=== PATIENT | male | born 1970 | race Caucasian/White ===

== ENCOUNTER 2019-10-12 02:11 | Emergency (ER) | payer MEDICAID ==
[~2019-10-12] VITALS: Ht 170.2 cm; Wt 80.0 kg
--- NOTE | 2019-10-12 02:22 | NUR ---
x ray at bedside
[2019-10-12] MEDS ORDERED: potassium Cl 20 mEq SR tablet PO ONE (02:55)
[2019-10-12] MEDS ORDERED: furosemide 40mg/4ml inj IV ONE (02:55)
[2019-10-12] MEDS ORDERED: lisinopril 10 MG tablet PO ONE (02:55)
[2019-10-12] MEDS ORDERED: carVEDilol 3.125mg tablet PO SCH (02:55)
[2019-10-12 03:41] VITALS: BP 136/85
== END 2019-10-12 03:30 | disposition home or self-care (01) ==
LOC: ER 02:12
DX: I42.7 Cardiomyopathy due to drug and external agent (principal); T43.625A Adverse effect of amphetamines, initial encounter; I50.9 Heart failure, unspecified; F15.90 Other stimulant use, unspecified, uncomplicated; J45.909 Unspecified asthma, uncomplicated; F17.200 Nicotine dependence, unspecified, uncomplicated; Z59.0 Homelessness; Y92.89 Other specified places as the place of occurrence of the external cause
CPT/HCPCS: 71045; 93005; 96374; 99284; J1940

== ENCOUNTER 2020-01-22 00:42 | Inpatient (IN) | payer MEDICAID ==
[~2020-01-22] VITALS: Ht 170.2 cm; Wt 90.9 kg
[2020-01-22 02:10] LABS: BASOPHILS % (AUTO) 0.2 % (0-1); EOSINOPHILS # (AUTO) 0.1 X10'3 (0-0.9); EOSINOPHILS % (AUTO) 0.5 % (0-6); HEMATOCRIT 40.8 % (42.0-52.0); HEMOGLOBIN 13.3 g/dl (14.0-17.9); LYMPHOCYTES # (AUTO) 1.1 X10'3 (1.1-4.8); LYMPHOCYTES % (AUTO) 4.4 % (21-51); MEAN CORPUSCULAR HGB CONC 32.5 g/dL (33.0-36.5); MEAN CORPUSCULAR VOLUME 89.4 FL (78-98); MEAN PLATELET VOLUME 10.1 FL (7.4-10.4); MONOCYTES # (AUTO) 1.2 X10'3 (0-0.9); MONOCYTES % (AUTO) 4.7 % (2-12); NEUTROPHILS # (AUTO) 22.8 X10'3 (1.8-7.7); NEUTROPHILS % (AUTO) 90.2 % (42-75); PLATELET COUNT 244 X10'3 (140-440); RED BLOOD COUNT 4.57 X10'6 (4.70-6.10); RED CELL DISTRIBUTION WIDTH 16.3 % (11.5-14.5)
[2020-01-22 02:16] LABS: WHITE BLOOD COUNT 25.3 X10'3 (4.5-11.0)
[2020-01-22 02:18] LABS: ALANINE AMINOTRANSFERASE 36 U/L (12-78); ALBUMIN 3.2 G/DL (3.4-5.0); ALBUMIN/GLOBULIN RATIO 0.8 (1.1-1.5); ALKALINE PHOSPHATASE 83 IU/L (46-116); ANION GAP 7 (8-16); ASPARTATE AMINO TRANSFERASE 24 U/L (10-37); BILIRUBIN,TOTAL 1.2 MG/DL (0.1-1.0); BLOOD UREA NITROGEN 18 MG/DL (7-18); BUN/CREATININE RATIO 14.6 (5.4-32.0); CALCIUM 8.5 MG/DL (8.5-10.1); CHLORIDE 104 MMOL/L (99-107); CREATININE 1.23 MG/DL (0.60-1.10); GLUCOSE 126 MG/DL (70-104); POTASSIUM 3.9 MMOL/L (3.5-5.1); SODIUM 140 MMOL/L (135-145); TOTAL CARBON DIOXIDE 28.7 MMOL/L (24-32); TOTAL PROTEIN 7.1 G/DL (6.4-8.2); eGFR 62 ML/MIN
[2020-01-22 02:28] LABS: TROPONIN I 0.07 NG/ML (0.0-0.05)
[2020-01-22 02:29] LABS: ETHANOL < 0.010 GM/DL (0.0-0.010)
[2020-01-22] MEDS ORDERED: CefTRIAXone 2gm/D5W 50ml 50 ML IV ONE (02:35)
--- NOTE | 2020-01-22 03:25 | NUR ---
PHARMACY DOESN'T HAVE MEDICATION [facility] READY.
--- NOTE | 2020-01-22 03:51 | NUR ---
DR RADFORD INFORMED OF HIS VISTAL SIGNS, HE IS ORDERING A CT
--- NOTE | 2020-01-22 03:57 | NUR ---
INFORMED REED FROM CT THAT JUAN PENDING
[2020-01-22] MEDS ORDERED: iohexol 350MG/ML 100ml bottle IV ONE (05:11)
--- NOTE | 2020-01-22 05:15 | NUR ---
PT VERY AGITATED. HE DIDN'T WANT TO GO TO CT. I VISITED WITH HIM ABOUT THE IMPORTANCE TO R/O A FEW THINGS AND HE SAID 'I HAVE NURSES WHERE I STAY AT' I TOLD HIM THAT WAS FINE, BUT THEY DO NOT HAVE A CT AND BECAUSE HIS HEART RATE AND RESPIRATORY RATE ARE SO ELEVATED, WE NEED TO ASSURE HE DOESN'T HAVE A BLOOD CLOT IN HIS LUNG, OR SOMETHING. HE SAID HE WOULD GO TO CT. THEN WHEN I ATTEMPTED TO GET A LITTLE BIT OF BLOOD FROM HIS IV HE SAID 'CAN YOU HOOK ME UP TO SOME FUCKING OXYGEN OR SOMETHING SO I CAN BREATH.' OXYGEN 2 LNC APPLIED. HE IS GOING TO CT NOW.
--- NOTE | 2020-01-22 05:18 | NUR ---
PT WAS ALSO INFORMED HIS COVID 19 TEST WAS NEGATIVE.
[2020-01-22] MEDS ORDERED: furosemide 10 MG/1 ML 10ml inj IV ONE (05:55)
[2020-01-22 07:02] LABS: ANISOCYTOSIS 1+; PLATELET ESTIMATE NORMAL; TOTAL CELLS COUNTED 100
[2020-01-22 07:02] LABS: URINE AMPHETAMINE SCREEN POSITIVE (Neg); URINE BARBITUATE SCREEN NEGATIVE (Neg); URINE BENZODIAZEPINES SCREEN NEGATIVE (Neg); URINE CANNABINOID SCREEN NEGATIVE (Neg); URINE COCAINE SCREEN NEGATIVE (Neg); URINE METHADONE SCREEN NEGATIVE (Neg); URINE OPIATE SCREEN NEGATIVE (Neg); URINE PHENCYCLIDINE SCREEN NEGATIVE (Neg)
[2020-01-22] MEDS ORDERED: FURO40TA4 PO (07:11)
[2020-01-22] MEDS ORDERED: ALBU8HFA IH (07:11)
[2020-01-22] MEDS ORDERED: morphine 2 MG/ML inj. syringe IV PRN (07:35)
[2020-01-22] MEDS ORDERED: acetaminophen 325mg tablet PO PRN (07:35)
[2020-01-22] MEDS ORDERED: magnesium hydroxide 30ml (MOM) UD suspension PO PRN (07:35)
[2020-01-22] MEDS ORDERED: ondansetron/PF 4mg/2ml inj IV PRN (07:35)
[2020-01-22] MEDS ORDERED: mag hydrox/Alum hydrox/simeth 30ml oral suspension PO PRN (07:35)
[2020-01-22 07:43] VITALS: BP 152/96
[2020-01-22] MEDS ORDERED: furosemide 10 MG/1 ML 10ml inj IV SCH (08:00)
[2020-01-22] MEDS ORDERED: heparin, porcine 5000 units/ml vial SQ SCH (08:00)
--- NOTE | 2020-01-22 08:00 | NUR ---
I WENT INTO PT. ROOM TO GET THE PATIENT READY TO BE ADMITTED AND PT. STATED HE HAS TO LEAVE TO GO GET HIS THINGS BEFORE HE GOES UPSTAIRS. I EXPLAINED TO HIM THAT WE CANNOT ALLOW HIM TO LEAVE AND COME BACK. HE THEN STATED THAT "HE IS A GROWN MAN AND HE CAN DO WHAT HE WANTS" I EXPLAINED TO HIM THAT HE IS FREE TO LEAVE BUT WE ADVISE HIM TO STAY AND CONTINUE HIS CARE, AND THAT HE IS PUTTING HIS HEALTH AT RISK IF HE LEAVES. HE WAS ALSO TOLD THAT IF HE LEAVES AND SOMETHING HAPPENS THE HOSPITAL IN NOT LIABLE. THE CHARGE NURSE ALSO EXPLAINED TO HIM OUR POLICY AND RISK OF LEAVING AMA AND HE STILL IS CHOOSING TO LEAVE. THE HOSPITALIST HAS BEEN PAGED ABOUT THE PT. WANTING TO LEAVE.
--- NOTE | 2020-01-22 08:20 | NUR ---
TALKED TO ABOUT HIS PATIENT WANTING TO LEAVE AMA AND HE STATED ITS A "FREE COUNTRY HE CAN LEAVE". I TOLD HIM I UNDERSTAND THAT BUT I NEEDED TO UPDATE HIM ON THE STATUS OF HIS PATIENT. DID NOT COME DOWN TO SIGN AMA FORM. I WENT OVER POLICY AND RISKS WITH PATIENT HE VOICED UNDERSTANDING HE SIGNED THE AMA FORM AND I REMOVED IV. HE IS LEAVING UNIT AND STATED THAT HE IS GOING TO COME BACK AFTER HE GETS HIS THINGS FROM HIS HOTEL.
== END 2020-01-22 08:25 | disposition left against medical advice (07) | DRG 194 ==
LOC: ER 00:42 → ED HOLD 07:32
PROVIDERS: ADMIT Family Medicine; ATTEND Family Medicine
DX: I50.9 Heart failure, unspecified (principal); D72.829 Elevated white blood cell count, unspecified; J45.909 Unspecified asthma, uncomplicated; Z53.29 Procedure and treatment not carried out because of patient's decision for other reasons; Z20.828 Contact with and (suspected) exposure to other viral communicable diseases; Z59.0 Homelessness
CPT/HCPCS: 36415; 71045; 71275; 80053; 80305; 80320; 83605; 83880; 84145; 84443; 84484; 85025; 87040; 87635; 93005; 96365; 96375; 99285; G0378; J0696; J1940; Q9967

== ENCOUNTER 2021-07-22 14:33 | Inpatient (IN) | payer MEDICAID ==
[~2021-07-22] VITALS: Ht 170.2 cm; Wt 120.5 kg
[~2021-07-22 14:33] MED LIST: ALBU8HFA IH; FURO40TA4 PO
[2021-07-22] MEDS ORDERED: ondansetron 4mg rapidly disintigrating tab PO ONE (15:05)
[2021-07-22 15:10] LABS: BASOPHILS # (AUTO) 0.1 X10'3 (0-0.2); EOSINOPHILS # (AUTO) 0.1 X10'3 (0-0.9); LYMPHOCYTES # (AUTO) 1.8 X10'3 (1.1-4.8); MEAN CORPUSCULAR HGB CONC 33.6 g/dL (33.0-36.5); MEAN PLATELET VOLUME 10.5 FL (7.4-10.4); RED BLOOD COUNT 4.43 X10'6 (4.70-6.10)
[2021-07-22 15:12] LABS: BASOPHILS % (AUTO) 1.1 % (0-1); EOSINOPHILS % (AUTO) 0.7 % (0-6); HEMATOCRIT 39.7 % (42.0-52.0); HEMOGLOBIN 13.3 g/dl (14.0-17.9); LYMPHOCYTES % (AUTO) 16.6 % (21-51); MEAN CORPUSCULAR HEMOGLOBIN 30.1 PG (27.0-31.0); MEAN CORPUSCULAR VOLUME 89.5 FL (78-98); MONOCYTES % (AUTO) 9.1 % (2-12); NEUTROPHILS # (AUTO) 7.8 X10'3 (1.8-7.7); NEUTROPHILS % (AUTO) 72.5 % (42-75); PLATELET COUNT 231 X10'3 (140-440); WHITE BLOOD COUNT 10.7 X10'3 (4.5-11.0)
[2021-07-22 15:21] LABS: ALANINE AMINOTRANSFERASE 28 U/L (12-78); ALBUMIN 3.3 G/DL (3.4-5.0); ALBUMIN/GLOBULIN RATIO 0.7 (1.1-1.5); ALKALINE PHOSPHATASE 75 IU/L (46-116); ANION GAP 6 (8-16); ASPARTATE AMINO TRANSFERASE 19 U/L (10-37); BILIRUBIN,TOTAL 0.4 MG/DL (0.1-1.0); BLOOD UREA NITROGEN 10 MG/DL (7-18); BUN/CREATININE RATIO 8.3 (5.4-32.0); CALCIUM 9.1 MG/DL (8.5-10.1); CHLORIDE 100 MMOL/L (99-107); GLUCOSE 149 MG/DL (70-104); POTASSIUM 3.8 MMOL/L (3.5-5.1); SODIUM 141 MMOL/L (135-145); TOTAL CARBON DIOXIDE 34.8 MMOL/L (24-32); TOTAL PROTEIN 7.9 G/DL (6.4-8.2); eGFR 64 ML/MIN
[2021-07-22] MEDS ORDERED: aspirin 325mg tablet PO ONE (15:45)
[2021-07-22 15:52] LABS: GIANT PLATELET FEW; PLATELET ESTIMATE NORMAL
[2021-07-22 15:53] LABS: LARGE PLATELETS FEW
--- NOTE | 2021-07-22 18:52 | NUR ---
PT WAS ASSESSED AND VITALS DEEMED STABLE TO WAIT IN THE LOBBY FOR A ROOM WHEN AVAILABLE.
[2021-07-22] MEDS ORDERED: PANT20TA18 PO (19:06)
[2021-07-22] MEDS ORDERED: CARV12.549 PO (19:11)
[2021-07-22] MEDS ORDERED: SPIR25TA5 PO (19:11)
[2021-07-22] MEDS ORDERED: BUME2TAB7 PO (19:11)
[2021-07-22] MEDS ORDERED: LISI5TAB22 PO (19:11)
--- NOTE | 2021-07-22 20:01 | NUR ---
PT SPO2 89% ON ROOM AIR WITH GOOD WAVE FORM, PT INITATED ON 4L VIA NC.
[2021-07-22] MEDS ORDERED: PERFLUTREN PROTEIN-A MICROSPHR (Optison) 0.22 MG/ML 3ML VIAL IV ONE (20:10)
[2021-07-22] MEDS ORDERED: ondansetron/PF 4mg/2ml inj IV PRN (20:10)
[2021-07-22] MEDS ORDERED: acetaminophen 325mg tablet PO PRN (20:10)
[2021-07-22] MEDS ORDERED: potassium Cl 20 mEq SR tablet PO PRN (20:10)
[2021-07-22] MEDS ORDERED: mag hydrox/Alum hydrox/simeth 30ml oral suspension PO PRN (20:10)
[2021-07-22] MEDS ORDERED: ipratropium/albuterol 3ml nebule NEB PRN (20:10)
[2021-07-22] MEDS ORDERED: magnesium 2GM in 50ml NS 50 ML IV PRN (20:10)
[2021-07-22] MEDS ORDERED: magnesium hydroxide 30ml (MOM) UD suspension PO PRN (20:10)
[2021-07-22] MEDS ORDERED: magnesium 4gm in 100ml NS 100 ML IV PRN (20:10)
[2021-07-22] MEDS ORDERED: potassium CL 10mEq/100ml bag 100 ML IV PRN (20:10)
[2021-07-22] MEDS ORDERED: albuterol 2.5 MG/3 ML nebule NEB PRN ×2 (20:10)
[2021-07-22] MEDS ORDERED: furosemide 40mg/4ml inj IV ONE (22:50)
[2021-07-22] MEDS ORDERED: levoFLOXACIN-Levaquin 750MG/D5 150 ML IV ONE (22:55)
[2021-07-23 04:13] LABS: BASOPHILS # (AUTO) 0.1 X10'3 (0-0.2); BASOPHILS % (AUTO) 1.4 % (0-1); EOSINOPHILS # (AUTO) 0.2 X10'3 (0-0.9); EOSINOPHILS % (AUTO) 1.9 % (0-6); HEMATOCRIT 38.4 % (42.0-52.0); HEMOGLOBIN 12.5 g/dl (14.0-17.9); LYMPHOCYTES # (AUTO) 1.5 X10'3 (1.1-4.8); LYMPHOCYTES % (AUTO) 16.5 % (21-51); MEAN CORPUSCULAR HEMOGLOBIN 29.5 PG (27.0-31.0); MEAN CORPUSCULAR HGB CONC 32.5 g/dL (33.0-36.5); MEAN CORPUSCULAR VOLUME 90.8 FL (78-98); MEAN PLATELET VOLUME 11.2 FL (7.4-10.4); NEUTROPHILS # (AUTO) 6.4 X10'3 (1.8-7.7); NEUTROPHILS % (AUTO) 69.2 % (42-75); PLATELET COUNT 213 X10'3 (140-440); RED BLOOD COUNT 4.23 X10'6 (4.70-6.10); RED CELL DISTRIBUTION WIDTH 15.8 % (11.5-14.5); WHITE BLOOD COUNT 9.2 X10'3 (4.5-11.0)
[2021-07-23 04:16] LABS: ALANINE AMINOTRANSFERASE 27 U/L (12-78); ALBUMIN 3.1 G/DL (3.4-5.0); ALBUMIN/GLOBULIN RATIO 0.7 (1.1-1.5); ALKALINE PHOSPHATASE 71 IU/L (46-116); ANION GAP 6 (8-16); ASPARTATE AMINO TRANSFERASE 15 U/L (10-37); BILIRUBIN,TOTAL 0.3 MG/DL (0.1-1.0); BLOOD UREA NITROGEN 12 MG/DL (7-18); BUN/CREATININE RATIO 9.4 (5.4-32.0); CALCIUM 8.4 MG/DL (8.5-10.1); CHLORIDE 100 MMOL/L (99-107); CREATININE 1.27 MG/DL (0.60-1.10); GLUCOSE 139 MG/DL (70-104); POTASSIUM 3.3 MMOL/L (3.5-5.1); SODIUM 142 MMOL/L (135-145); TOTAL CARBON DIOXIDE 36.5 MMOL/L (24-32); TOTAL PROTEIN 7.5 G/DL (6.4-8.2); eGFR 60 ML/MIN
[2021-07-23 04:20] LABS: MAGNESIUM 1.8 MG/DL (1.5-2.4)
[2021-07-23 04:45] LABS: LARGE PLATELETS FEW; PLATELET ESTIMATE NORMAL
[2021-07-23] MEDS ORDERED: pantoprazole 40mg Tablet.DR PO SCH (07:30)
[2021-07-23] MEDS ORDERED: furosemide 40mg/4ml inj IV SCH (08:00)
[2021-07-23] MEDS ORDERED: lisinopril 5mg tablet PO SCH (08:00)
[2021-07-23] MEDS ORDERED: carVEDilol 12.5mg tablet PO SCH (08:00)
[2021-07-23] MEDS: K and/or MAG REPLACEMENT MC SCH ×2 (08:00→21:38)
[2021-07-23] MEDS ORDERED: docusate sod 100mg capsule PO SCH (08:00)
[2021-07-23] MEDS ORDERED: spironolactone 25 MG tablet PO SCH (08:00)
--- NOTE | 2021-07-23 09:05 | NUR ---
NOTIFIED DR. PAULINO THAT PT WANTS TO LEAVE AMA. UNDERSTANDANDS. PT WILL BE PROVIDED W/AMA FORM. ALL RISKS AND BENEFITS DISCUSSED.
--- NOTE | 2021-07-23 10:04 | NUR ---
NOTIFIED DR. PAULINO PT HAVING RUNS OF SVT. SBP 90'S. HR IRREGULAR, RATE 90'S WITH ELEVATIONS TO 200'S. MD TO PLACE ORDERS.
[2021-07-23] MEDS ORDERED: LORazepam 2 mg/ml vial IV PRN (10:05)
--- NOTE | 2021-07-23 10:20 | NUR ---
SPOKE W/DR. PAULINO. GAVE ORDERS FOR ATIVAN. PT REPORTED LAST METH USE 2 NIGHTS AGO, DENIES WITHDRAWL
[2021-07-23] MEDS ORDERED: levoFLOXACIN 750MG TABLET PO SCH (11:00)
[2021-07-23] MEDS ORDERED: magnesium 2GM in 50ml NS 50 ML IV ONE (14:55)
--- NOTE | 2021-07-23 14:58 | NUR ---
Spoke with [facility] Wire Threader Raysa (Pt's assigned social services), pt. gave permission to staff to discuss medical condition and care, call back number [phone].
[2021-07-23] MEDS ORDERED: amiodarone 150mg/dext, iso-os 100 ML IV ONE (15:20)
[2021-07-23] MEDS: potassium Cl 20 mEq SR tablet PO PRN ×2 (15:41→21:38)
[2021-07-23] MEDS ORDERED: carvedilol 6.25mg tablet PO ONE (15:55)
[2021-07-23] MEDS: amiodarone/D5 360MG/200ML BAG 200 ML IV SCH ×2 (16:06→21:55)
[2021-07-23] MEDS ORDERED: lactobacillus rhamnosus 10,000 MMU CELLS/CAPSULE PO SCH (20:00)
[2021-07-23] MEDS ORDERED: carvedilol 6.25mg tablet PO SCH (20:00)
[2021-07-23] MEDS ORDERED: enoxaparin 40mg/0.4ml syringe SQ SCH (20:00)
[2021-07-23] MEDS ORDERED: furosemide 20 MG/2 ML vial IV SCH (20:00)
--- NOTE | 2021-07-23 20:00 | NUR ---
Manpreet constantino in [facility] - 07/23/21 at 2007 by MERRITT Transported to room 6 from [facility] area via wheelchair.
[2021-07-23 23:50] VITALS: BP 110/73
--- NOTE | 2021-07-24 00:33 | NUR ---
Pt refused supplemental oxygen repeatedly. Pt was educated on purpose of supplemental oxygen but still refused. Witnessed by GOLF COURSE STARTER Erick).
--- NOTE | 2021-07-24 02:23 | NUR ---
Pt refused to keep telemetry leads on and advised that he was leaving. Pt was educated on the need for care. Pt was adamant about not keeping leads on. Witnessed by Paola TAO
--- NOTE | 2021-07-24 03:05 | NUR ---
pt advised that he wanted to leave and to remove his iv lines. Pt was educated on the risk of leaving the hospital without receiving proper care. Pt insisted. Pt signed ama and banking management consulting manager notified. Pt was escorted out of the facility by security. vending stand supervisor was notified as well.
[2021-07-24] MEDS ORDERED: aspirin 81mg, enteric-coated 1 TAB TABLET.DR PO SCH (08:00)
[2021-07-24] MEDS ORDERED: spironolactone 25 MG tablet PO SCH (08:30)
== END 2021-07-24 03:05 | disposition left against medical advice (07) | DRG 145 ==
LOC: ER 14:34 → ED HOLD 20:13 → MED 3N 07-23 22:50
PROVIDERS: ADMIT Family Medicine; ATTEND Family Medicine
DX: J20.9 Acute bronchitis, unspecified (principal); J96.00 Acute respiratory failure, unspecified whether with hypoxia or hypercapnia; I21.A1 Myocardial infarction type 2; I50.23 Acute on chronic systolic (congestive) heart failure; I42.7 Cardiomyopathy due to drug and external agent; Z20.822 Contact with and (suspected) exposure to COVID-19; Z60.2 Problems related to living alone; I47.1 Supraventricular tachycardia; N18.9 Chronic kidney disease, unspecified; J44.0 Chronic obstructive pulmonary disease with (acute) lower respiratory infection; Z53.29 Procedure and treatment not carried out because of patient's decision for other reasons; F15.90 Other stimulant use, unspecified, uncomplicated; F17.210 Nicotine dependence, cigarettes, uncomplicated; Z59.00 Homelessness unspecified; Z79.899 Other long term (current) drug therapy; Z71.6 Tobacco abuse counseling; Z71.51 Drug abuse counseling and surveillance of drug abuser; E87.6 Hypokalemia
CPT/HCPCS: 36415; 71045; 80053; 83735; 83880; 84484; 85008; 85025; 85379; 87081; 87635; 93005; 94760; 96374; 96375; 99285; C9803; G0378; J0282; J1940; J1956; J2060; J3475